=== PATIENT | male | born 1965 | race African-American/Black ===

== ENCOUNTER 2016-12-16 18:49 | Emergency (ER) | payer OTHER | END 2016-12-16 21:37 | disposition home or self-care (01) | LOC: ER 18:49 | DX: S76.811A Strain of other specified muscles, fascia and tendons at thigh level, right thigh, initial encounter (principal); M79.651 Pain in right thigh; E11.9 Type 2 diabetes mellitus without complications; I10 Essential (primary) hypertension; E78.00 Pure hypercholesterolemia, unspecified; Z79.4 Long term (current) use of insulin; Z79.01 Long term (current) use of anticoagulants; Z86.711 Personal history of pulmonary embolism | CPT/HCPCS: 36415; 80048; 85025; 85610; 85730; 93971 ==